=== PATIENT | male | born 1965 | race Caucasian/White ===

== ENCOUNTER 2019-08-02 01:22 | Inpatient (IN) | payer OTHER ==
[~2019-08-02] VITALS: Ht 177.8 cm; Wt 72.2 kg
[~2019-08-02 01:22] MED LIST: DOXY-214 PO
[2019-08-02 01:28] VITALS: Ht 177.8 cm; Wt 72.2 kg
[2019-08-02] MEDS ORDERED: PIPER-TAZO 3.375 GM IV (PMX) 100 ML IVPB ONE (04:00)
[2019-08-02] MEDS ORDERED: VANCOMYCIN 1 GM (PMX) 250 ML IVPB ONE (04:00)
[2019-08-02] MEDS ORDERED: PIPER-TAZO 3.375 GM IV (PMX) 100 ML IVPB SCH (06:30)
[2019-08-02] MEDS ORDERED: NACL 0.9% 3 ML SYG IV SCH (06:30)
[2019-08-02] MEDS ORDERED: ONDANSETRON 4 MG INJ IV PRN (06:30)
[2019-08-02] MEDS ORDERED: ALBUTEROL/IPRATROPIUM (NEB) 3 ML AMP HHN PRN (06:30)
[2019-08-02] MEDS ORDERED: ACETAMINOPHEN 325 MG TAB PO PRN (06:30)
[2019-08-02] MEDS ORDERED: HYDROCODONE/APAP (5/325) TAB PO PRN ×2 (06:30)
[2019-08-02] MEDS ORDERED: VANCOMYCIN 500 MG (PMX) 100 ML IVPB ONE (08:00)
[2019-08-02] MEDS: ENOXAPARIN 40 MG/0.4 ML SYG SC SCH (09:07)
[2019-08-02] MEDS: PIPER-TAZO 3.375 GM IV (PMX) 100 ML IVPB SCH ×2 (12:36→17:34)
[2019-08-02] MEDS: VANCOMYCIN 1 GM 250 ML IVPB SCH (18:29)
[2019-08-02 20:38] VITALS: BP 99/54; PULSE 85; RESP 18
[2019-08-03] MEDS: PIPER-TAZO 3.375 GM IV (PMX) 100 ML IVPB SCH ×4 (00:49→17:41)
[2019-08-03 02:05] VITALS: BP 108/71; PULSE 66; RESP 18
[2019-08-03] MEDS: VANCOMYCIN 1 GM 250 ML IVPB SCH ×2 (06:13→18:34)
[2019-08-03] MEDS ORDERED: VANCOMYCIN IV PER PHARMACY XX SCH (06:30)
[2019-08-03 08:00] VITALS: BP 109/64; PULSE 60; RESP 20
[2019-08-03] MEDS: ENOXAPARIN 40 MG/0.4 ML SYG SC SCH (08:50)
[2019-08-03 14:00] VITALS: BP 108/65; PULSE 63; RESP 17
[2019-08-03 20:00] VITALS: BP 106/56; PULSE 66; RESP 18
[2019-08-03] MEDS: NEOMYC/POLYMYX/BACIT 30 GM OINT TOP SCH (20:21)
[2019-08-04] MEDS: PIPER-TAZO 3.375 GM IV (PMX) 100 ML IVPB SCH ×3 (00:18→12:07)
[2019-08-04 02:00] VITALS: BP 140/75; PULSE 62; RESP 17
[2019-08-04] MEDS ORDERED: VANCOMYCIN 1.25 GM/NS 250 ML 250 ML IVPB SCH (06:00)
[2019-08-04 08:00] VITALS: BP 115/76; PULSE 65; RESP 16
[2019-08-04] MEDS: NEOMYC/POLYMYX/BACIT 30 GM OINT TOP SCH (08:48)
[2019-08-04] MEDS: ENOXAPARIN 40 MG/0.4 ML SYG SC SCH (08:49)
[2019-08-04 14:00] VITALS: BP 121/64; PULSE 85; RESP 16
== END 2019-08-04 14:49 | disposition home or self-care (01) | DRG 593 ==
LOC: E/R 01:22 → 5EC 05:30
PROVIDERS: ADMIT Internal Medicine; ATTEND Internal Medicine
DX: L98.499 Non-pressure chronic ulcer of skin of other sites with unspecified severity (principal); L03.221 Cellulitis of neck
CPT/HCPCS: 70490; 80048; 80053; 80202; 83735; 84100; 85025; 87070; 96374; 96375; J1650; J2543; J3370